=== PATIENT | male | born 1945 | race Caucasian/White ===

== ENCOUNTER → 2018-12-17 | Outpatient (CLI) | payer OTHER ==
[~2018-12-17] MED LIST: ACET325; ALLERGY10 MG; IBUPROFEN200 MG; Omeprazole20 M1; Sleep Aid25 M1
[2018-12-18 14:23] LABS: Stool Occult Bld Immuno 1 Positive (NEGATIVE); Stool Occult Bld Immuno 2 Negative (NEGATIVE)
== END | disposition home or self-care (01) ==
LOC: LAB EV 05:00
PROVIDERS: Internal Medicine Gastroenterology
DX: Z13.818 Encounter for screening for other digestive system disorders (principal); K57.30 Diverticulosis of large intestine without perforation or abscess without bleeding; Z86.010 Personal history of colon polyps
CPT/HCPCS: G0328

== ENCOUNTER 2019-01-05 08:32 | Day surgery (SDC) | payer OTHER ==
[~2019-01-05] VITALS: Ht 172.7 cm; Wt 73.7 kg
[~2019-01-05 08:32] MED LIST changes: +ACET325 PO; +ADVIL LIQUI-GE200 MG PO; +ALLERGY RELIEF; +Prilosec Otc20 MG PO; +Sleep Aid25 M1 PO
== END 2019-01-05 11:12 | disposition home or self-care (01) ==
LOC: ORSCSDS 08:32
PROVIDERS: Internal Medicine Gastroenterology
PROC: 0DBM8ZX Excision of Descending Colon, Via Natural or Artificial Opening Endoscopic, Diagnostic (ICD-10-PCS; principal; 2019-01-05 10:00)
PROC: 0DB58ZX Excision of Esophagus, Via Natural or Artificial Opening Endoscopic, Diagnostic (ICD-10-PCS; principal; 2019-01-05 10:00)
PROC: 0DBK8ZX Excision of Ascending Colon, Via Natural or Artificial Opening Endoscopic, Diagnostic (ICD-10-PCS; principal; 2019-01-05 10:00)
DX: K22.70 Barrett's esophagus without dysplasia (principal); R19.5 Other fecal abnormalities; Z86.010 Personal history of colon polyps; D12.2 Benign neoplasm of ascending colon; D12.4 Benign neoplasm of descending colon; K57.30 Diverticulosis of large intestine without perforation or abscess without bleeding; Z83.71 Family history of colonic polyps; Z87.891 Personal history of nicotine dependence; Z79.899 Other long term (current) drug therapy
CPT/HCPCS: 88305; J2704; J7120

== ENCOUNTER 2019-09-13 07:02 | Day surgery (SDC) | payer OTHER ==
[~2019-09-13] VITALS: Ht 172.7 cm; Wt 75.8 kg
[~2019-09-13 07:02] MED LIST changes: -ALLERGY RELIEF; +ALLERGY RELIEF PO; +GLUCOSAMINE-CH900 MG PO; +OTC SLEEP AID PO; +THERA1 EACH PO
--- NOTE | 2019-09-13 07:57 | NUR ---
Ambulatory in Day Surgery. Surgical site prepped with 2% Chlorhexidine cloth wipe. History, Chart, Medications and Allergies reviewed before start of procedure. Lungs clear T/O to Auscultation. Patient confirms NPO status and agrees with scheduled surgery. Pre-Op teaching done. Pt verbalizes understanding. Patient reports completing Chlorhexadine shower X2 prior to admission to hospital.
--- NOTE | 2019-09-13 11:37 | NUR ---
PT MEETS CRITERIA FOR D/C. PT DRESSED AND LYING IN BED WAITING FOR RIDE.
--- NOTE | 2019-09-13 12:01 | NUR ---
Discharge instructions reviewed with patient AND PT'S DAUGHTER. Patient verbalizes understanding. Copy given to patient to take home. Discharged via wheelchair to private car for ride home.
== END 2019-09-13 12:01 | disposition home or self-care (01) ==
LOC: ORSCMMR 07:02 → ORD 07:30 → ORSCMMR 08:45
PROVIDERS: Surgery
PROC: 0YU60JZ Supplement Left Inguinal Region with Synthetic Substitute, Open Approach (ICD-10-PCS; principal; 2019-09-13 08:45)
DX: K40.90 Unilateral inguinal hernia, without obstruction or gangrene, not specified as recurrent (principal); Z87.891 Personal history of nicotine dependence
CPT/HCPCS: A9270-GY; C1781; J0690; J1100; J1885; J2370; J2405; J2704; J3010; J7120

== ENCOUNTER 2019-09-21 23:09 | Emergency (ER) | payer OTHER ==
[~2019-09-21] VITALS: Ht 172.7 cm; Wt 70.3 kg
[2019-09-22 01:16] LABS: BASOPHILS ABSOLUTE AUTO 0.05 K/mm3 (0.00-0.23); BASOPHILS PERCENT AUTO 1 % (0-2); EOSINOPHILS ABSOLUTE AUTO 0.05 K/mm3 (0.00-0.68); EOSINOPHILS PERCENT AUTO 1 % (0-6); IMMATURE GRAN ABSOLUTE AUTO 0.04 K/mm3 (0.00-0.10); IMMATURE GRAN PERCENT AUTO 0 % (0-1); LYMPHOCYTES ABSOLUTE AUTO 0.96 K/mm3 (0.84-5.20); LYMPHOCYTES PERCENT AUTO 9 % (21-46); MONOCYTES ABSOLUTE AUTO 0.66 K/mm3 (0.16-1.47); MONOCYTES PERCENT AUTO 6 % (4-13); Mean Corpuscular HGB 31.6 pg (26.0-34.0); Mean Corpuscular HGB Conc 33.3 g/dL (31.5-36.5); Mean Corpuscular Volume 95 fL (80-100); Mean Platelet Volume 9.6 fL (9.1-12.4); NEUTROPHILS ABSOLUTE AUTO 8.48 K/mm3 (1.96-9.15); NEUTROPHILS PERCENT AUTO 83 % (41-73); Platelet Count 342 K/mm3 (150-400); RDW Coefficient Variation 11.7 % (11.7-14.2); RDW Standard Deviation 40.5 fL (35.1-46.3); Red Blood Cell Count 4.11 M/mm3 (4.30-5.90); White Blood Cell Count 10.24 K/mm3 (4.00-11.30)
[2019-09-22 01:31] LABS: International Normalized Ratio 0.96; Prothrombin Time Results 10.3 Sec (9.7-11.5)
[2019-09-22 01:32] LABS: Alanine Aminotransfer (ALT/SGP 33 U/L (12-78); Albumin, Blood 3.7 g/dL (3.4-5.0); Albumin/Globulin Ratio 1.3 (0.8-1.8); Alk Phos 62 U/L (50-136); Anion Gap 7 mmol/L (6-16); Aspartate Aminotrans (AST/SGOT 22 U/L (12-37); Bilirubin, Total 0.3 mg/dL (0.1-1.0); Blood Urea Nitrogen 26 mg/dL (8-24); Bun/Creatinine Ratio 24.1 (12.0-20.0); CO2, Blood 26 mmol/L (21-32); Calcium, Blood 8.9 mg/dL (8.5-10.1); Chloride, Blood 109 mmol/L (98-108); Creatinine, Blood 1.08 mg/dL (0.60-1.20); Globulin, Blood 2.9 g/dL (2.2-4.0); Glomerular Filtration Rate >60 (60-); Glucose, Blood 127 mg/dL (70-99); Magnesium, Blood 2.3 mg/dL (1.6-2.4); Potassium, Blood 4.1 mmol/L (3.5-5.5); Sodium, Blood 142 mmol/L (136-145); Total Protein, Blood 6.6 g/dL (6.4-8.2)
== END 2019-09-22 03:40 | disposition home or self-care (01) ==
LOC: ER 23:09
PROVIDERS: Emergency Medicine
DX: K91.870 Postprocedural hematoma of a digestive system organ or structure following a digestive system procedure (principal)
CPT/HCPCS: 36415; 74176; 76870; 80053; 83735; 85025; 85610; 85730; 99284-25; A9270

== ENCOUNTER 2021-10-05 10:02 | Day surgery (SDC) | payer OTHER ==
[~2021-10-05] VITALS: Ht 172.7 cm; Wt 71.3 kg
--- NOTE | 2021-10-05 12:00 | NUR ---
GAVE REPORT TO TIANA BARRETT... WENT TO LUNCH..
--- NOTE | 2021-10-05 14:20 | NUR ---
10/05/21 1420 Abi Henry PATIENT ALSO RECEIVED 1 GM OF VANCO IN THE PRE OP SETTING PRIOR TO ARRIVING IN THE OR.
--- NOTE | 2021-10-05 16:30 | NUR ---
PT ARRIVED TO UNIT FROM PACU. VSS ON RA, A&O X4. PT DENIES PAIN AT THIS TIME. UNABLE TO WIGGLE TOES AT THIS TIME, NO SENSATION TO FEET YET. STRONG PEDAL PULSES. TOLERATING ICE WATER AND JELLO, DENIES N/V.
--- NOTE | 2021-10-05 19:28 | NUR ---
NO ACUTE CHANGES SINCE ARRIVAL TO UNIT. VSS ON RA. PT IS TOLERATING PO INTAKE WELL. AWAITING POST OP VOID. STILL NO SENSATION TO LOWER EXTREMITIES. REPORT GIVEN TO ABIOLA MONTIEL.
--- NOTE | 2021-10-06 03:44 | NUR ---
SHIFT SUMMARY A/O X4. POD1 R TKA, DRESSING C/D/I, LIBRA WRAP AND POLAR PACK IN PLACE. NO NUMBNESS OR TINGLING REPORTED. PT HAS AMBULATED IN [address] WITH STAND BY ASSIST, GB AND FWW. VOIDING AND TOLERATING PO INTAKE. PAIN TREATED WITH PO PAIN MEDICATIONS. PLEASANT AND COOPERATIVE WITH CARE. WILL CONTINUE TO MONITOR AND REPORT TO ONCOMING RN.
[2021-10-06 04:59] LABS: BASOPHILS ABSOLUTE AUTO 0.01 K/mm3 (0.00-0.23); BASOPHILS PERCENT AUTO 0 % (0-2); EOSINOPHILS PERCENT AUTO 0 % (0-6); Hemoglobin 11.8 g/dL (13.5-17.5); IMMATURE GRAN ABSOLUTE AUTO 0.03 K/mm3 (0.00-0.10); IMMATURE GRAN PERCENT AUTO 0 % (0-1); LYMPHOCYTES ABSOLUTE AUTO 0.79 K/mm3 (0.84-5.20); LYMPHOCYTES PERCENT AUTO 10 % (21-46); MONOCYTES ABSOLUTE AUTO 0.53 K/mm3 (0.16-1.47); MONOCYTES PERCENT AUTO 6 % (4-13); Mean Corpuscular HGB 31.7 pg (26.0-34.0); Mean Corpuscular HGB Conc 33.7 g/dL (31.5-36.5); Mean Corpuscular Volume 94 fL (80-100); Mean Platelet Volume 9.7 fL (9.1-12.4); NEUTROPHILS ABSOLUTE AUTO 6.94 K/mm3 (1.96-9.15); NEUTROPHILS PERCENT AUTO 84 % (41-73); Platelet Count 270 K/mm3 (150-400); RDW Coefficient Variation 11.8 % (11.7-14.2); RDW Standard Deviation 40.9 fL (35.1-46.3); Red Blood Cell Count 3.72 M/mm3 (4.30-5.90)
[2021-10-06 05:12] LABS: Anion Gap 7 mmol/L (6-16); Blood Urea Nitrogen 21 mg/dL (8-24); Bun/Creatinine Ratio 27.2 (12.0-20.0); CO2, Blood 26 mmol/L (21-32); Calcium, Blood 8.9 mg/dL (8.5-10.1); Chloride, Blood 103 mmol/L (98-108); Creatinine, Blood 0.77 mg/dL (0.60-1.20); Glomerular Filtration Rate >60 (60-); Glucose, Blood 126 mg/dL (70-99); Magnesium, Blood 2.1 mg/dL (1.6-2.4); Potassium, Blood 4.6 mmol/L (3.5-5.5); Sodium, Blood 136 mmol/L (136-145)
[2021-10-06] MEDS ORDERED: ASPI81CH PO (09:08)
[2021-10-06] MEDS ORDERED: OXAYDO5 M3 PO (09:09)
[2021-10-06] MEDS ORDERED: PROM25 PO (09:09)
--- NOTE | 2021-10-06 10:24 | NUR ---
DISCHARGE VSS ON RA, TOLERATING PO INTAKE WELL, DENIES N/V. CLEARED PT EASILY, AMBULATING W/ FWW&GB WELL. PAIN IS REPORTED TO BE TOLERABLE BY PT. DISCUSSED DISCHARGE INSTRUCTIONS, REMOVED IV. SENT D/C INSTRUCTIONS, AQUACEL DRESSINGS, & POLAR PACK W/ PATIENT. ESCORTED OUT VIA W/C.
== END 2021-10-06 10:30 | disposition home or self-care (01) ==
LOC: ORSCMMR 10:02 → ORD 14:30 → SURS 16:27 → ORSCMMR 10-06 10:30
PROVIDERS: Orthopaedic Surgery
PROC: 8E0YXBZ Computer Assisted Procedure of Lower Extremity (ICD-10-PCS; principal; 2021-10-05 14:30)
PROC: 0SRC0J9 Replacement of Right Knee Joint with Synthetic Substitute, Cemented, Open Approach (ICD-10-PCS; principal; 2021-10-05 14:30)
DX: M17.11 Unilateral primary osteoarthritis, right knee (principal); Z79.899 Other long term (current) drug therapy; Z87.891 Personal history of nicotine dependence; K21.9 Gastro-esophageal reflux disease without esophagitis
CPT/HCPCS: 36415; 73560-RT; 80048; 83735; 85025; 97110; 97116; 97161; A9270; C1713; C1776; J0171; J0735; J1100; J1885; J2250; J2405; J2704; J2795; J3010; J3370; J7050; J7120

== ENCOUNTER 2022-12-29 10:28 | Day surgery (SDC) | payer OTHER ==
[~2022-12-29] VITALS: Ht 172.7 cm; Wt 77.0 kg
[~2022-12-29 10:28] MED LIST changes: +ASPI81CH PO; +OXAYDO5 M3 PO; +PROM25 PO
[2022-12-29] MEDS ORDERED: IBUP600 PO (10:49)
[2022-12-29] MEDS ORDERED: ZYRTEC10 M4 PO (10:50)
[2022-12-29 12:13] VITALS: BP 126/80
== END 2022-12-29 12:15 | disposition home or self-care (01) ==
LOC: ORSCSDS 10:28
PROVIDERS: Internal Medicine Gastroenterology
PROC: 0DB58ZX Excision of Esophagus, Via Natural or Artificial Opening Endoscopic, Diagnostic (ICD-10-PCS; principal; 2022-12-29 11:15)
DX: K22.70 Barrett's esophagus without dysplasia (principal); K22.2 Esophageal obstruction; K44.9 Diaphragmatic hernia without obstruction or gangrene; Z87.891 Personal history of nicotine dependence; Z79.899 Other long term (current) drug therapy
CPT/HCPCS: 88305; J2704; J7120

== ENCOUNTER 2023-05-10 13:23 | Emergency (ER) | payer OTHER ==
[~2023-05-10] VITALS: Ht 170.2 cm; Wt 72.6 kg
[~2023-05-10 13:23] MED LIST changes: +IBUP600 PO; +ZYRTEC10 M4 PO
[2023-05-10] MEDS ORDERED: OXAYDO5 M1 PO (16:22)
[2023-05-10] MEDS ORDERED: SULTRIDS PO (16:22)
[2023-05-10 17:00] VITALS: BP 126/81
== END 2023-05-10 17:40 | disposition home or self-care (01) ==
LOC: ER 13:23
DX: S82.391B Other fracture of lower end of right tibia, initial encounter for open fracture type I or II (principal); S86.221A Laceration of muscle(s) and tendon(s) of anterior muscle group at lower leg level, right leg, initial encounter; W29.3XXA Contact with powered garden and outdoor hand tools and machinery, initial encounter; Z23 Encounter for immunization; Z88.0 Allergy status to penicillin; Z79.899 Other long term (current) drug therapy; Z87.891 Personal history of nicotine dependence
CPT/HCPCS: 12002; 29515; 73610; 90471; 90715; 96374-59; 96375-59; 99284-25; A9270; J0696; J1170

== ENCOUNTER 2023-05-18 10:59 | Day surgery (SDC) | payer OTHER ==
[~2023-05-18] VITALS: Ht 172.7 cm; Wt 76.3 kg
[~2023-05-18 10:59] MED LIST changes: +OXAYDO5 M1 PO; +SULTRIDS PO
--- NOTE | 2023-05-18 11:15 | NUR ---
05/18/23 1115 Alyssa Huitron PT CAME IN TODAY WITH SOCK AND LIBRA WRAP OVER THE TOP OF WOUND.
[2023-05-18] MEDS ORDERED: UNISOM SIMPLE2.5 MG PO (11:18)
[2023-05-18 12:45] VITALS: BP 114/71
--- NOTE | 2023-05-18 13:01 | NUR ---
05/18/23 1301 NIXON REYES IV REMOVED. TANG WELL. CANNULA INTACT. WNL
== END 2023-05-18 13:12 | disposition home or self-care (01) ==
LOC: ORSCSDS 10:59
PROVIDERS: Orthopaedic Surgery
PROC: 0LQN0ZZ Repair Right Lower Leg Tendon, Open Approach (ICD-10-PCS; principal; 2023-05-18 12:15)
DX: S81.811A Laceration without foreign body, right lower leg, initial encounter (principal); S82.121 Displaced fracture of lateral condyle of right tibia; W29.3XXA Contact with powered garden and outdoor hand tools and machinery, initial encounter; Z79.899 Other long term (current) drug therapy
CPT/HCPCS: J0690; J2704; J3010; J7120

== ENCOUNTER 2024-07-30 06:17 | Day surgery (SDC) | payer OTHER ==
[~2024-07-30] VITALS: Ht 170.2 cm; Wt 74.3 kg
[~2024-07-30 06:17] MED LIST changes: +UNISOM SIMPLE2.5 MG PO
[2024-07-30] MEDS ORDERED: Tranexamic Acid 100 ML IV ONE ×2 (06:23→10:19)
[2024-07-30] MEDS ORDERED: OxyCODONE HCL 10 MG TABCR ONE (06:31)
[2024-07-30] MEDS ORDERED: Acetaminophen 500 MG Tab ONE (06:31)
[2024-07-30] MEDS ORDERED: CefTRIAXone Sodium 2,000 MG in NS 100 ML IV SCH (06:40)
[2024-07-30] MEDS ORDERED: OMEP20ER (06:47)
[2024-07-30] MEDS ORDERED: EPINEPhrine HCl 1 MG/ML 1ML Amp ONE ×2 (06:50→07:02)
[2024-07-30] MEDS ORDERED: Ropivacaine 0.5% HCL/PF 5 MG/ML 30ML Vial ONE (06:50)
[2024-07-30] MEDS ORDERED: NS 1,000 ML IV ONE (06:54)
[2024-07-30] MEDS ORDERED: propofoL 20 ML IV ONE (06:57)
[2024-07-30] MEDS ORDERED: FentaNYL Citrate 50 MCG/ML 2 ML Injection ONE (06:57)
[2024-07-30] MEDS ORDERED: Sugammadex Sodium 200 MG/2ML SDV (100 MG/ML) ONE (06:58)
[2024-07-30] MEDS ORDERED: Midazolam HCl 1MG / ML 2ML Vial ONE (06:58)
[2024-07-30] MEDS ORDERED: Dexamethasone Sod Phos 10 MG/ML 1ML VIAL ONE (06:59)
[2024-07-30] MEDS ORDERED: Rocuronium Bromide 10 MG/ML 5ML Injection IV ONE (06:59)
[2024-07-30] MEDS ORDERED: Ondansetron HCl 2 MG / ML 2ML Vial ONE (06:59)
[2024-07-30] MEDS ORDERED: Bupivacaine 0.5% HCl 5 MG/ML 30MLVIAL ONE (07:02)
[2024-07-30] MEDS ORDERED: Lidocaine 2%-Epineph 1:200000 20 ML SDV ONE (07:02)
[2024-07-30] MEDS ORDERED: Lidocaine 1%-Epineph 1:100000 20 ML MDV ONE (07:02)
[2024-07-30] MEDS ORDERED: Dexmedetomidine HCL 200 MCG / 2 ML ONE (07:03)
--- NOTE | 2024-07-30 07:32 | NUR ---
07/30/[address] AT BEDSIDE FOR PLACEMENT OF NERVE BLOCK. PT GIVEN 1MG VERSED AND PLACED ON MONITORS AND 2L O2 BY NC. T/O AT 0722. PROCEDURE START TIME 725, END TIME 728. PT TOLERATED PROCEDURE WELL.
[2024-07-30] MEDS ORDERED: Glycopyrrolate 0.2 MG/ML 5ML VIAL ONE ×2 (07:54→07:55)
[2024-07-30] MEDS ORDERED: ePHEDrine Sulfate 50 MG/ML 1ML Injection ONE (08:10)
[2024-07-30 10:25] VITALS: BP 128/76
== END 2024-07-30 11:14 | disposition home or self-care (01) ==
LOC: ORSCSDS 06:17
PROVIDERS: Orthopaedic Surgery
PROC: 0RRK00Z Replacement of Left Shoulder Joint with Reverse Ball and Socket Synthetic Substitute, Open Approach (ICD-10-PCS; principal; 2024-07-30 07:30)
DX: M75.122 Complete rotator cuff tear or rupture of left shoulder, not specified as traumatic (principal); K21.9 Gastro-esophageal reflux disease without esophagitis; Z87.891 Personal history of nicotine dependence
CPT/HCPCS: 73030; A9270; C1713; C1776; J0171; J0696; J1100; J2250; J2405; J2704; J2795; J3010